=== PATIENT | male | born 1985 | race Caucasian/White ===

== ENCOUNTER 2022-12-20 10:08 | Emergency (ER) | payer OTHER ==
[2022-12-20] MEDS ORDERED: Lidocaine 1% 10 ML MDV INJECT ONE (10:59)
== END 2022-12-20 11:51 | disposition home or self-care (01) ==
LOC: JP.ED 10:08
DX: S51.811A Laceration without foreign body of right forearm, initial encounter (principal); W25.XXXA Contact with sharp glass, initial encounter; Y92.89 Other specified places as the place of occurrence of the external cause; Y99.0 Civilian activity done for income or pay
CPT/HCPCS: 12002; 99282